=== PATIENT | female | born 1950 | race Caucasian/White ===

== ENCOUNTER 2024-09-12 06:29 | Day surgery (SDC) | payer MEDICARE, BC, SELFPAY ==
[2024-09-07 11:27] VITALS: BMI 31.4
[2024-09-12 07:10] VITALS: BP 160/94; PULSE 82; RESP 16; TEMP 37.3; O2SAT 98; BMI 31.2
[2024-09-12] MEDS: Tetracaine HCl/PF 0.5% Oph Sol 4 ML DROPS 1 DROP EYE-LEFT (07:14)
[2024-09-12 07:16] LABS: Glucose, Whole Blood 176 mg/dL (60-115)
[2024-09-12] MEDS: Cyclopentolate 1 % Ophth Sol 2 ML DRPBTL 1 DROP EYE-LEFT ×3 (07:16→07:35)
[2024-09-12] MEDS: Tropicamide 1 % Ophth Sol 3 ML BTL 1 DROP EYE-LEFT ×3 (07:18→07:37)
[2024-09-12] MEDS: Ketorolac Tromethamine 0.5% Op 5 ML DROPS 1 DROP EYE-LEFT ×3 (07:19→07:39)
[2024-09-12] MEDS: Phenylephrine HCL 2.5% Oph SoL 2 ML BOTTLE 1 DROP EYE-LEFT ×3 (07:21→07:44)
--- NOTE | 2024-09-12 07:36 | P.CONAN_ITS ---
HPI - Anesthesia Eval Consult details Narrative: for cataract extraction [facility] Past Medical History Medical History Cataracts, bilateral Nephrolithiasis Hx of urinary tract infection HTN (hypertension) Dyslipidemia Diabetic neuropathy Diabetes Family History Family history of problems with anesthesia: No Surgical History Surgical History Hx of colonoscopy Hx of lithotripsy History of total left knee replacement (TKR) History of Problems with Anesthesia: No Social History Social History Patient Tobacco Use Status: Never used Tobacco Use of substances other than those prescribed or required for medical reasons: No Are you DNR?: Yes Advance Directives: No Advance Directives Information Provided: Yes Meds Allergies Allergy/AdvReac Type Severity Reaction Status Date / Time amlodipine Allergy perineal Verified 09/12/24 07:09 irritation empagliflozin Allergy Swelling Verified 09/12/24 07:09 [From Jardiance] Active Medications: Current Medications Lactated Ringer's (Lr) 500 mls @ 100 mls/hr IVCONT .Q5H ROMAN Povidone Iodine (Povidone Iodine 5 % Ophth Soln 30 Ml Bottle) 1 appl EYE-LEFT PREOP PRN PRN Reason: Pre-Op Surgical Implant Prophy Home Medications ?Medication ?Instructions ?Recorded ?Confirmed ?Last Taken ?Type [place] 3 09/07/24 09/07/24 Unknown History PreserVision AREDS 09/07/24 Unknown History cholecalciferol (vitamin D3) 50 50 mcg PO DAILY 09/07/24 09/12/24 Unknown History mcg (2,000 unit) capsule (Vitamin D3) cyanocobalamin (vitamin B-12) 3,000 mcg sublingual DAILY 09/07/24 09/12/24 Unknown History 1,000 mcg sublingual tablet insulin glargine 100 unit/mL (3 27 unit subcut DAILY 09/07/24 09/12/24 Unknown History mL) subcutaneous pen (Basaglar KwikPen U-100 Insulin) valsartan 160 mg tablet 160 mg PO DAILY 09/07/24 09/12/24 Unknown History Exam Height,Weight and Vital Signs: Height 5 ft 8.11 in Weight 93.44 kg Last Vital Signs Temp 99.2 F 09/12/24 07:10 Pulse 82 09/12/24 07:10 Resp 16 09/12/24 07:10 BP 160/94 H 09/12/24 07:10 Pulse Ox 98 09/12/24 07:10 O2 Del Method Room Air 09/12/24 07:10 Pertinent Lab Results Pertinent Lab Results: Laboratory Tests 09/12/24 07:05 POC Glucose 176 H Airway Mallampati Class: II TM Dist: >3cm Neck ROM: Full Heart: rrr Lungs: cta Assessment and Plan Assessment Anesthesia Assessment: Anesthesia Plan Discussed and Chart Reviewed Final Anesthetic Review Family History of Problems with Anesthesia: No History of Problems with Anesthesia: No NPO: Yes ASA Class: III Final Preanesthetic Review: No Changes in Pt Med Stat, Meds/Allgs Chart Reviewed, Consent Obtained/Reviewed and Anes Risks/Benef Reviewed Patient Risk: Intermediate Procedure Risk: Low Anesthetic Plan Disposition: Standard PACU
--- NOTE | 2024-09-12 07:57 | MHC.SHP ---
Pre-Procedural Eval Section A - 24 Hr Update-Section A only Date of Service: 09/12/24 The patient is an INPATIENT: No Changes since office visit: No Cold of Flu in the past 2 weeks, No New Medical Problems, No Changes in Medication and No Patient answered all questions The patient has been examined within 24 hours of the surgical procedure. The History & Physical has been completed within 30 days and I have reviewed it.: Yes Section B - Complete if H&P > 30 days Chief Complaint: Age-related nuclear cataract, left eye Allergies: Allergies Allergy/AdvReac Type Severity Reaction Status Date / Time amlodipine Allergy perineal Verified 09/12/24 07:09 irritation empagliflozin Allergy Swelling Verified 09/12/24 07:09 [From Jardiance] Plan Diagnosis/Plan: Unchanged I have reviewed the history and physical and performed a pertinent physical examination on my patient. No changes have occurred unless specified. Time Spent With Patient Time: Total time managing care of this patient today ____ minutes.
--- NOTE | 2024-09-12 07:57 | HO.PNOPHT ---
Ophthalmology Procedure Procedure Date of Service: 09/12/24 Ophthalmology Viscoelastic: Healon Duet Dual Pack Pro Ophthalmology Lenses: IOL Acrysof MP - [id number] (22.5) Procedure Notes: PREOPERATIVE DIAGNOSIS: Decreased visual acuity left eye secondary to cataract POSTOPERATIVE DIAGNOSIS: Same PROCEDURE: Left cataract extraction with intraocular lens insertion SURGEON: Mickey Singh M.D. ANESTHESIA: Topical/MAC ESTIMATED BLOOD LOSS: None COMPLICATIONS: None After obtaining informed consent, the patient was brought to the operation room suite and placed in the supine position. After adequate sedation per anesthesia, topical drops of Tetracaine were given to the left eye. The eye was then prepped and draped in the usual sterile fashion. The operating room microscope was then positioned over the operative eye and a lid speculum placed. A paracentesis was created. Viscoelastic was then instilled into the anterior chamber. A three plane incision was then created temporally, utilizing a 2.85 mm keratome. Capsulotomy forceps were then utilized to create a circular tear capsulotomy. Hydrodissection and hydrodelineation were carried out until adequate mobilization of the nucleus occurred. Phacoemulsification was then utilized to remove the dense central nucleus followed by removal of the cortical material utilizing the automated aspiration irrigation unit. Viscoat elastic was instilled into the posterior capsular bag followed by placement of a posterior chamber intraocular lens without difficulty. The residual Viscoat elastic was then removed utilizing the automated IA machine. The wound was check and found to be watertight. The patient tolerated the procedure well and the lid speculum was removed. Intracameral injection of Vigamox 0.1 mL followed by a subtenon injection of Kenalog-40 0.2 mL were administered. The patient will be seen in the a.m.
[2024-09-12 08:19] VITALS: BP 144/68; PULSE 75; RESP 16; TEMP 36.4; O2SAT 98
== END 2024-09-12 08:30 | disposition home or self-care (01) ==
PROVIDERS: PCP Internal Medicine; Visit Provider Ophthalmology
PROC: (CPT 66985; principal; 2024-09-12 08:00)
DX: H25.12 Age-related nuclear cataract, left eye (principal); H54.7 Unspecified visual loss; I10 Essential (primary) hypertension; H52.223 Regular astigmatism, bilateral; H18.413 Arcus senilis, bilateral; E78.00 Pure hypercholesterolemia, unspecified; E78.5 Hyperlipidemia, unspecified; E11.40 Type 2 diabetes mellitus with diabetic neuropathy, unspecified; Z79.899 Other long term (current) drug therapy; Z88.8 Allergy status to other drugs, medicaments and biological substances; Z87.442 Personal history of urinary calculi; Z96.652 Presence of left artificial knee joint; Z87.891 Personal history of nicotine dependence
CPT/HCPCS: 66984; 82947; J2250; J3301; V2630

== ENCOUNTER 2024-09-26 07:38 | Day surgery (SDC) | payer MEDICARE, BC, SELFPAY ==
[2024-09-07 11:35] VITALS: BMI 31.4
--- OUTSIDE RECORDS SUMMARY | 2024-09-14 17:46 | XMS_ITS | Clinical Summary ---
Author Organization [facility] Address [address] [address] Phone Care Team Providers Care Educational Programming Director Name Role Phone Mayco Berg MD Primary Care Provider [phone] Allergies Active Allergy Reactions Criticality Noted Date Comments Amlodipine Other (see comments) 12/17/2022 Empagliflozin Other (see comments) 12/17/2022 Medications Basaglar KwikPen 100 UNIT/ML injection Inject 27 Units under the skin 1 (one) time each day in the evening 3 Active Multiple Vitamins-Minera ls (PRESERVISION AREDS PO) 0 Refills, Maintenance, 11/07/22 16:40:00 EDT, Partial fill upon patient request if the prescription is for a schedule II opioid drug. 3 Active valsartan (DIOVAN) 160 MG tablet Take 1 tablet (160 mg total) by mouth 1 (one) time each day 90 tablet 3 4 06/20/20 25 Active valsartan (Diovan) 80 MG tablet Take 1 tablet (80 mg total) by mouth 1 (one) time each day To be taken along with you 160 mg tablet for a total daily dose of 240 mg per day 90 tablet 3 4 06/20/20 25 Active Active Problems Problem Noted Date Diagnosed Date Localized edema 04/22/2021 Hypertensive nephrosclerosis 10/23/2020 Proteinuria, not otherwise specified 10/23/2020 Cyst of kidney 10/23/2020 Dyslipidemia 10/23/2020 Stage 3b chronic kidney disease 10/19/2020 Hypertension 10/19/2020 Hypertensive heart disease without heart failure 10/19/2020 Renal disorder due to type 2 diabetes mellitus 0 10/19/2020 Resolved Problems Problem Noted Date Diagnosed Date Resolved Date At increased risk for cardiovascular event 04/22/2021 06/15/2023 Encounters Date Type Department Care Team Description 06/20/2024 10:00 AM EST Office Visit [facility] [address] [facility] [address] [place] [id number] Ernst Aviles MD Stage 3b chronic kidney disease (HCC) (Primary Dx); Proteinuria, not otherwise specified; Renal disorder due to type 2 diabetes mellitus <Other diabetic kidney complication> (HCC); Hypertensive nephrosclerosis; Hypertensive heart disease without heart failure, not otherwise specified; Hypertension; Dyslipidemia 06/17/2024 Orders Only [facility] [address] [place] [id number] Ernst Aviles MD Stage 3b chronic kidney disease (HCC); Proteinuria, not otherwise specified; Localized edema; Hypertensive nephrosclerosis; Hypertensive heart disease without heart failure, not otherwise specified; Hypertension; Dyslipidemia from Last 3 Months Immunizations Name Administration Dates Next Due Influenza Split High Dose Pr eservative Free IM 04/19/2019,05/03/2018,10/07/2017 Family History Medical History Relation Comments Dementia Father 87 Diabetes Sibling brother Relation Status Comments Father Mother Alive Sibling Social History Tobacco Use Types Packs/Day Years Used Date Smoking Tobacco: Former Smokeless Tobacco: Never Alcohol Use Standard Drinks/Week Comments Yes 0 (1 standard drink = 0.6 oz pure alcohol) Alcoholic Drinks/day: Occasional social drink Comments Unknown Sex and Gender Information Value Date Recorded Sex Assigned at Not on file Legal Sex Female 4:48 PM EST Gender Identity Not on file Sexual Orientation Not on file Last Filed Vital Signs Vital Sign Reading Time Taken Comments Blood Pressure 185/106 06/20/2024 10:17 AM EST Pulse 90 06/20/2024 10:17 AM EST Temperature - - Respiratory Rate - - Oxygen Saturation 97% 06/20/2024 10:17 AM EST Inhaled Oxygen Concentration - - Weight 93.2 kg (205 lb 6.4 oz) 06/20/2024 10:17 AM EST Height 172.7 cm (5' 8 ) 06/20/2024 10:17 AM EST Body Mass Index 31.23 06/20/2024 10:17 AM EST Plan of Treatment Upcoming Encounters Date Type Department Care Team (Late st Contact Info) Description 12/21/2024 10:20 AM EDT Office Visit [facility] [address] [address] Ernst Aviles MD [address] [address] Health Maintenance Due Date Last Done Comments Breast Cancer Screening 1950 Colorectal Cancer Screening: Annual FOBT 12/12/1999 Colorectal Cancer Screening: Colonoscopy 12/12/1999 Colorectal Cancer Screening: Sigmoidoscopy 12/12/1999 Pneumococcal Vaccine: 65+ Years (2 of 2 - PPSV23 or PCV20) 01/04/2019 11/09/2018 Diabetes: Ophthalmology Exam 08/20/2020 Diabetes: Pedal Pulse Checked 08/20/2020 Diabetes: Sensory Foot Exam 08/20/2020 Diabetes: Visual Foot Exam 08/20/2020 Influenza Vaccine (#1) 2024 0, 04/19/2019, 05/03/2018, Additional history exists Diabetes: Hemoglobin A1C 09/13/2024 024, 12/09/2022, 04/17/2021, Additional history exists Hepatitis B Vaccine Aged Out 08/01/1994, 03/04/1994, 01/29/1994 No longer eligible based on patient's age to complete this topic Procedures Procedure Name Priority Date/Time Associated Diagnosis Comments HEMOGLOBIN A1C Routine 06/13/2024 9:31 AM EST from Last 3 Months or Most Recently Relevant to Health Maintenance Results * (ABNORMAL) Hemoglobin A1c (06/13/2024 9:31 AM EST) Hemoglobin A1C 7.0(H) 4.8 - 5.6 % [facility] Comment: ? Prediabetes: 5.7 - 6.4 ? Diabetes: >6.4 ? Glycemic control for adults with diabetes: <7.0 06/13/2024 9:31 AM EST 06/13/2024 us Ernst Aviles MD LAB BLOOD ORDERABLES Final Re sult [facility] [address] [place] [address] from Last 3 Months or Most Recently Relevant to Health Maintenance Insurance MEDICARE [facility] MEDICARE [facility] Care Teams Educational Programming Director Relationship Specialty Start Date End Date Mayco Berg MD [facility] [place], [place] PCP - General 07/30/20
--- OUTSIDE RECORDS SUMMARY | 2024-09-14 17:46 | XMS_ITS | Continuity of Care Document ---
Author Organization [facility] Address [address] [place] [address]- Care Team Providers Care Insurance Coordinator Name Role Phone Morena MILLER, Mayco Taylor Primary Care Physician [phone] [place] [facility] 08/31/24 [facility] [address] [place] [address]- Encounter Type: Triage Allergies, Adverse Reactions, Alerts Substance Criticality Severity Reaction Reaction Severity Status AmLODIPine Besylate Foot swelling Active Jardiance Perineal irritation Active Immunizations Given and Recorded Vaccine Date Status Refusal Reason influenza virus vaccine, inactivated 1 04/29/23 Gi waqar influenza virus vaccine, inactivated 06/10/22 Give n influenza virus vaccine, inactivated 07/03/19 Hector rded influenza virus vaccine, inactivated 04/19/19 Hector rded influenza virus vaccine, inactivated 06/06/18 Hector rded influenza virus vaccine, inactivated 04/19/18 Hector rded influenza virus vaccine, inactivated 2 10/18/16 Re corded zoster vaccine, inactivated 06/30/21 Recorded zoster vaccine, inactivated 02/15/21 Recorded SARS-CoV-2 (COVID-19) mRNA BNT-162b2 vac 05/17/21 Recorded SARS-CoV-2 (COVID-19) mRNA BNT-162b2 vac 11/03/20 Recorded SARS-CoV-2 (COVID-19) mRNA BNT-162b2 vac 10/11/20 Recorded Influenza Virus Vaccine (oldterm) 06/12/20 Recorde d pneumococcal 13-valent vaccine 11/09/18 Given Hepatitis A Adult Vaccine 3 05/13/18 Given Hepatitis A Adult Vaccine 4 10/28/17 Given Typhoid Vaccine, Inactivated 10/28/17 Given tetanus/diphtheria/pertussis, acel(Tdap) 10/28/17 Given hepatitis B adult vaccine 08/01/94 Recorded hepatitis B adult vaccine 03/04/94 Recorded hepatitis B adult vaccine 01/29/94 Recorded 1Result Comment: [facility]: [id number] 2Location History: [facility] 3Result Comment: [05/13/2018] Hepatitis A #2 4Result Comment: [10/28/2017] hep A #1 Medications Alcohol Pads See Instructions, # 1 each, Maintenance, use as directed, 11/12/22 12:02:00 PM EDT, Supply, 173, cm,11/12/22 8:39:00 EDT, Height, 83.2, kg, 11/09/22 6:54:00 EDT, Dry Weight Start Date: 11/12/22 Status: Ordered Quantity: 1.0 Unit: each Repeat number: 1 aspirin 81 mg oral delayed release tablet 1 tablet = 81 mg, By Mouth, Daily, 0 Refills, Maintenance, 03/05/21 10:04:00 AM EDT, Partial fill upon patient request if the prescription is for a schedule II opioid drug. Start Date: 03/05/21 Status: Ordered Repeat number: 1 Basaglar KwikPen 100 units/mL subcutaneous solution = 27 units, Subcutaneous Infusion, Daily, dx: type II diabetes, # 15 mL, 4 Refills, Maintenance, 08/01/24 11:38:00 AM [id number], Partial fill upon patient request if the prescription is for a schedule II opioid drug., 173, cm, 05/17/24 9:45:00 EDT, Height, 89.4, kg, 01/14/24 13:58:00 EDT, Dry Weight Start Date: 08/01/24 Stop Date: 12/29/24 Status: Ordered Quantity: 15.0 Unit: mL Repeat number: 5 Basaglar Tempo Pen 100 units/mL subcutaneous solution See Instructions, Inject 27 units SQ daily. Patient continues to use this basal insulin., # 15 mL, 5 Refills, Maintenance, 03/31/24 3:44:00 PM EDT, [facility] #[id number], Partial fill upon patient request if the prescription is for a schedule II opioid drug., 173, cm, 01/14/24 13:58:00 EDT, Height, 89.4, kg, 01/14/24 13:58:00 EDT, Dry Weight Start Date: 03/31/24 Status: Ordered Quantity: 15.0 Unit: mL Repeat number: 6 Contour Next EZ Glucometer See Instructions, # 1 each, Maintenance, use as directed for Type 2 Diabetes Mellitus, 11/12/22 12:00:00 PM EDT, Supply, 173, cm, 11/12/22 8:39:00 EDT, Height, 83.2, kg, 11/09/22 6:54:00 EDT, Dry Weight Start Date: 11/12/22 Status: Ordered Quantity: 1.0 Unit: each Repeat number: 1 Contour Next EZ Test Strips See Instructions, # 1 each, Maintenance, use as directed for Type 2 Diabetes Mellitus, 11/12/22 12:00:00 PM EDT, Supply, 173, cm, 11/12/22 8:39:00 EDT, Height, 83.2, kg, 11/09/22 6:54:00 EDT, Dry Weight Start Date: 11/12/22 Status: Ordered Quantity: 1.0 Unit: each Repeat number: 1 Freestyle Lancets See Instructions, # 100 each, Maintenance, use as directed, 11/12/22 12:01:00 PM EDT, Supply, 173, cm, 11/12/22 8:39:00 EDT, Height, 83.2, kg, 11/09/22 6:54:00 EDT, Dry Weight Start Date: 11/12/22 Status: Ordered Quantity: 100.0 Unit: each Repeat number: 1 Freestyle Jam 14 Day Sensors 2 boxes/month change every 14 days. Freestyle Jam 14 Day Sensors 2 boxes/month change every 14 days., See Instructions, # 2 each, Refills 11, Tot. Refills 11, Maintenance, 2 boxes monthly IDDM E11.9, 11/13/22 9:29:00 AM EDT, Compound Start Date: 11/13/22 Status: Ordered Quantity: 2.0 Unit: each Repeat number: 12 Freestyle Jam 14-day [place] Freestyle Jam 14-day [place], See Instructions, # 1 each, Refills 0, Tot. Refills 0, Maintenance, Use to scan for blood sugar at least 4 times daily. E11.65. If prior authoriazation is needed, please sent to primary care provider Mayco Mendieta MD, 11/12/22 11:59:00 AM EDT, Compound, 173, cm, 11/12/22 8:39:00 EDT, Height, 83.2, kg, 11/09/22 6:54:00 EDT, Dry Weight Start Date: 11/12/22 Status: Ordered Quantity: 1.0 Unit: each Repeat number: 1 Freestyle Jam 14-day Sensors Freestyle Jam 14-day Sensors, See Instructions, # 2 each, Refills 11, Tot. Refills 11, Maintenance, Use to scan for blood sugar at least 4 times daily. E11.65. If prior authoriazation is needed, please sent to primary care provider Mayco Mendieta MD, 11/12/22 11:58:00 AM EDT, Compound, 173, cm, 11/12/22 8:39:00 EDT, Height, 83.2, kg, 11/09/22 6:54:00 EDT, Dry Weight Start Date: 11/12/22 Status: Ordered Quantity: 2.0 Unit: each Repeat number: 12 FreeStyle Jam 2 Monitor See Instructions, # 1 each, Maintenance, Use to test BS 4x/day per PCP E11.9 IDDM, 11/13/22 9:29:00 AM EDT, Supply Start Date: 11/13/22 Status: Ordered Quantity: 1.0 Unit: each Repeat number: 1 Multivitamin 1 tablet, By Mouth, Daily, 0 Refills, Maintenance, 10/28/17 1:15:16 PM EDT Start Date: 10/28/17 Status: Ordered Repeat number: 1 NovoLOG FlexPen 100 units/mL subcutaneous solution See Instructions, 145 - 169 3 units 170 - 194 4 units 195 - 219 5 units 220 - 244 6 units 245 - 2697 units 270 - 294 8 units, # 10 mL, 0 Refills, Maintenance, 11/12/22 12:06:00 PM EDT, Solution, [facility] #[id number], Partial fill upon patient request if the prescription is for a schedule II opioid drug., 173, cm, 11/12/22 8:39:00 EDT, Height, 83.2, kg, 11/09/22 6:54:00 EDT, Dry Weight Start Date: 11/12/22 Status: Ordered Quantity: 10.0 Unit: mL Repeat number: 1 [place]-3 Polyunsaturated Fatty Acids 1 tablet, By Mouth, 0 Refills, Maintenance, 03/02/18 11:23:38 AM EDT Start Date: 03/02/18 Status: Ordered Repeat number: 1 Pen Treece, 31 G x 5 mm BD Ultra Fine III See Instructions, # 100 each, Refills 5, Tot. Refills 5, Maintenance, use as directed for Type 2 Diabetes Mellitus, 02/04/24 4:21:00 PM EDT, Supply, 173, cm, 01/14/24 13:58:00 EDT, Height, 89.4, kg, 01/14/24 13:58:00 EDT, Dry Weight Start Date: 02/04/24 Stop Date: 08/02/24 Status: Ordered Quantity: 100.0 Unit: each Repeat number: 6 Pen Treece, 31 G x 5 mm BD Ultra Fine III See Instructions, # 100 each, Refills 0, Tot. Refills 0, Maintenance, use as directed for Type 2 Diabetes Mellitus, 11/12/22 11:59:00 AM EDT, Supply, 173, cm, 11/12/22 8:39:00 EDT, Height, 83.2, kg, 11/09/22 6:54:00 EDT, Dry Weight Start Date: 11/12/22 Stop Date: 12/12/22 Status: Ordered Quantity: 100.0 Unit: each Repeat number: 1 PreserVision 0 Refills, Maintenance, 11/07/22 4:40:00 PM EDT, Partial fill upon patient request if the prescription is for a schedule II opioid drug. Start Date: 11/07/22 Status: Ordered Repeat number: 1 valsartan 160 mg oral tablet 160 mg, 1, tablet, By Mouth, Daily, # 90 tablet, Refills 3, Tot. Refills 3, Maintenance, 08/06/23 11:18:00 AM EST, Route to Pharmacy Electronically, [facility] #[id number], Partial fill upon patient request if the prescription is for a schedule II opioid drug., 173, cm, 08/06/23 11:16:00 EST, Height, 85.1, kg, 03/02/23 13:08:00 EDT, Dry Weight Start Date: 08/06/23 Status: Ordered Quantity: 90.0 Unit: tablet Repeat number: 4 Vitamin B12 = 3,000 mcg, By Mouth, 0 Refills, Maintenance, 04/29/23 11:41:00 AM EDT, Partial fill upon patient request if the prescription is for a schedule II opioid drug. Start Date: 04/29/23 Status: Ordered Repeat number: 1 Vitamin D3 1000 intl units oral capsule 2 capsule = 2,000 International_Units, By Mouth, Daily, # 60 capsule, 0 Refills, Maintenance, 08/04/17 11:47:18 AM EST, Capsule Start Date: 08/04/17 Status: Ordered Quantity: 60.0 Unit: capsule Repeat number: 1 Problem List Condition Confirmation Course Effective Dates Status H ealth Status Informant Hypertension Confirmed Active Diabetic nephropathy Confirmed Active Dyslipidemia Confirmed Active Nephrolithiasis Confirmed Active Obese class I Confirmed Active UTI (urinary tract infection) Confirmed Active Social History Social History Type Response Smoking Status Former smoker; Tobac co user in household: No; Other: quit 40 years ago; entered on: 06/02/17 Sex Sex Representation Female (finding) Implantable Device List Procedure Provider Procedure Date Device Type Site Cystoscopy Retrograde Ureter al Stent Jan Everett MD 03/02/23 Unknown Ureter Device Identifier Serial Number Lot or Batch Number Manufacturing Date Expiration Date Distinct Identification Code MRI Safety Implantable Status Assigning Authority Unknown Unknown [id number] Unknown 08/26/25 Unknown Unknown Active Unknown Patient Care team information Care Team Personnel Name: Ernst Bah MD Position: [facility] Renal MD Member Role: Lifetime Consulting Physician Address: [address] [facility] [address] Telecom: Name: Joni Quiñonez MD Position: [facility] Outreach Member Role: Lifetime Consulting Physician Address: [address] [facility] [address] Telecom: Name: Rylie Albert RN Position: [facility] RN Member Role: Primary Care Nurse Name: Morena MILLER, Mayco Taylor Position: [facility] Physician - Primary Care Member Role: PCP Address: [address] [place] [address]- Telecom: Care Team Related Persons Name: CARLEE LÓPEZ MD Name: JV YUO Insurance Providers Guarantor name: [id number] YOU Health Plan Information #: 1 Payer: MEDICARE PART B OUTPT Member Number: NA Policy Number: NA Group Number: NA Health Plan Information #: 2 Payer: [employer]ARE SUP[employer] Member Number: NA Policy Number: NA Group Number: NA
--- OUTSIDE RECORDS SUMMARY | 2024-09-14 17:46 | XMS_ITS | Continuity of Care Document ---
Author Organization [facility] Address [address] [place] [address]- Care Team Providers Care Brace End Mainspring Former Name Role Phone Morena MILLER, Mayco Taylor Primary Care Physician Encounter [facility] [place] Date(s): 09/01/24 - 09/08/24 [facility] [address] [place], [place] [address] Attending Physician: Rocco Santana MD Referring Physician: Samantha MILLER, Mickey Dunbar Encounter Type: Office Visit Allergies, Adverse Reactions, Alerts Substance Criticality Severity [...] B adult vaccine 01/29/94 Recorded 1Result Comment: [facility] [place]: [id number] 2Location History: [facility] 3Result Comment: [05/13/2018] Hepatitis A #2 4Result Comment: [10/28/2017] hep A #1 Medications Basaglroberto EncarnacionPen 100 units/mL subcutaneous solution = 27 units, Subcutaneous Infusion, Daily, dx: type II diabetes, # 15 mL, 4 Refills, Maintenance, 08/01/24 11:38:00 AM EST, [id number], Partial fill upon patient request if the prescription is for a schedule II opioid drug., 173, cm, 05/17/24 9:45:00 EDT, Height, 89.4, kg, 01/14/24 13:58:00 EDT, Dry Weight Start Date: 08/01/24 Stop Date: 12/29/24 Status: Ordered Quantity: 15.0 Unit: mL Repeat number: 5 [place]-3 Polyunsaturated Fatty Acids 1 tablet, By Mouth, 0 Refills, Maintenance, 03/02/18 11:23:38 AM EDT Start Date: 03/02/18 Status: Ordered Repeat number: 1 PreserVision 0 Refills, Maintenance, 11/07/22 4:40:00 PM EDT, Partial fill upon patient request if the prescription is for a schedule II opioid drug. Start Date: 11/07/22 Status: Ordered Repeat number: 1 valsartan 160 mg oral tablet 160 mg, 1, tablet, By Mouth, Daily, # 90 tablet, Refills 3, Tot. Refills 3, Maintenance, 08/06/23 11:18:00 AM EST, Route to Pharmacy Electronically, [facility][id number], Partial fill upon patient request if the [...] Active UTI (urinary tract infection) Confirmed Active Procedures Procedure Date Related Diagnosis Body Site Status Left total knee replacement; lithotripsy x 2; colonoscopies Completed Vital Signs Most recent to oldest [Reference Range]: 1 Height 173 cm (09/01/24 11:38 AM) Weight 93.9 kg (09/01/24 11:38 AM) Oxygen Saturation [94-100 %] 97 % (09/01/24 11:38 AM) Pulse Rate [55-90 bpm] 73 bpm (09/01/24 11:38 AM) Body Mass Index [18.5-24.99 kg/m2] 31.37 kg/m2 *>HHI* (09/01/24 11:38 AM) Blood Pressure [90-138/55-84 mm Hg] 192/ 93mm Hg *H* (09/01/24 11:38 AM) Respiratory Rate [16-30 br/min] 16 br/mi n (09/01/24 11:38 AM) Blood pressure sites Arm, right (09/01/24 11:38 AM) Weight Obtained Via Standing scale (09/01/24 11:38 AM) Social History Social History Type Response Smoking [...] Safety Implantable Status Assigning Authority Unknown Unknown [id number] Unknown 08/26/25 Unknown Unknown Active Unknown Patient Care team information Care Team Personnel Name: Ernst Bah MD Position: [facility] Renal MD Member Role: Lifetime Consulting Physician Address: [address] [facility] [facility] [place] [address]- Telecom: Name: Olamide MILLER, Joni Position: [facility] Outreach Member Role: Lifetime Consulting Physician Address: [address] [facility] [address] [facility] [place], [place] [address] Telecom: Name: Rylie Albert RN Position: [facility] RN Member Role: Primary Care Nurse Name: Mayco Berg MD Position: [facility] Physician - Primary Care Member Role: PCP Address: [address] [place] [address]- Telecom: Care Team Related Persons Name: CARLEE LÓPEZ MD Name: JV YOU Insurance Providers Guarantor name: DEVAUGHN YOU Health Plan Information #: 2 Payer: BLUE MEDICARE SUPPL Member Number: [id number] Policy Number: NA Group Number: [id number] Health Plan Information #: 1 Payer: MEDICARE PART B OUTPT Member Number: [id number] Policy Number: NA Group Number: NA
--- OUTSIDE RECORDS SUMMARY | 2024-09-14 17:46 | XMS_ITS | Continuity of Care Document ---
Author Organization [facility] Address [address] [place] [address]- Care Team Providers Care Global Climate Change Analyst Name Role Phone Mayco Berg MD Primary Care Physician Encounter 08/17/24 - 08/24/24 [facility] [address] [facility] [address], [address] [place] [address]- Attending Physician: Suhas Olson MD Admitting Physician: Suhas Olson MD Referring Physician: Suhas Olson MD Encounter Type: OutPatient One Time Allergies, Adverse Reactions, Alerts Substance Criticality Severity [...] B adult vaccine 01/29/94 Recorded 1Result Comment: [facility]: [id number] 2Location History: [facility] 3Result Comment: [05/13/2018] [...] mL, 4 Refills, Maintenance, 08/01/24 11:38:00 AM [facility], [facility] #[id number], Partial fill upon patient request if the [...] 5 Refills, Maintenance, 03/31/24 3:44:00 PM EDT, [facility] #[id number], Partial fill upon patient request if the [...] each Repeat number: 12 Freestyle Jam 14-day [place] Freestyle Jam 14-day [place], See Instructions, # 1 each, Refills 0, [...] Refills, Maintenance, 11/12/22 12:06:00 PM EDT, [id number], Partial fill upon patient request if the prescription is for a schedule II opioid drug., 173, cm, 11/12/22 8:39:00 EDT, Height, 83.2, kg, 11/09/22 6:54:00 EDT, Dry Weight Start Date: 11/12/22 Status: Ordered Quantity: 10.0 Unit: mL Repeat number: 1 [place]-3 Polyunsaturated Fatty Acids 1 tablet, By Mouth, 0 Refills, Maintenance, 03/02/18 11:23:38 AM EDT Start Date: 03/02/18 Status: Ordered Repeat number: 1 Pen [place], 31 G x 5 mm BD Ultra Fine III See Instructions, # 100 each, Refills 5, Tot. Refills 5, Maintenance, use as directed for Type 2 Diabetes Mellitus, 02/04/24 4:21:00 PM EDT, Supply, 173, cm, 01/14/24 13:58:00 EDT, Height, 89.4, kg, 01/14/24 13:58:00 EDT, Dry Weight Start Date: 02/04/24 Stop Date: 08/02/24 Status: Ordered Quantity: 100.0 Unit: each Repeat number: 6 Pen [place], 31 G x 5 mm BD Ultra [...] 11:18:00 AM EST, Route to Pharmacy Electronically, [facility] #[id number], Partial fill upon patient request if the [...] Active UTI (urinary tract infection) Confirmed Active Results Radiology Reports * Exam Date Time Procedure Performing Provider Status 08/17/24 2:18 PM US Renal Bladder Art Reilly; Au th (Verified) Notes: (US Renal Bladder) Reason For Exam: Calculus of kidney RESULT: US Renal Bladder [facility] [address] [place] [address]. Reason: Calculus of kidney. COMPARISON: 07/23/2023; CT Abdomen and Pelvis 06/02/2023. FINDINGS: Right kidney: 11.3 cm in length. No hydronephrosis. Normal parenchymal thickness and echotexture. No stones. No suspicious mass. Left kidney: 10.0 cm in length. No hydronephrosis. Normal parenchymal thickness and echotexture. Nostones. No suspicious mass. Simple cyst measuring 1.1 x 0.8 x 1.0 cm in the upper pole, similar or slightly decreased from prior. Urinary bladder: Incompletely distended, but no evidence of stone, mass or debris. Prevoid urinary bladder volume approximately 136 cc. Postvoid urinary bladder not assessed. IMPRESSION: No sonographic evidence of nephrolithiasis or hydronephrosis. Stable or slightly decreased 1.1 cm left renal cyst. WSN: [id number] Ordering Physician: Suhas Olson Dictated By: Jeyson Lawson MD Dictated Date/Time: 08/17/24 3:49 pm Reviewed By: Jeyson Lawson MD Signed By: Jeyson Lawson MD Signed Date/Time: 08/17/24 3:49 pm Transcribed By: CSB Transcribed Date/Time: 08/17/24 3:47 pm Social History Social History Type Response Smoking [...] Safety Implantable Status Assigning Authority Unknown Unknown [id number] Unknown 08/26/25 Unknown Unknown Active Unknown Patient Care team information Care Team Personnel Name: Ernst Bah MD Position: [facility] Renal MD Member Role: Lifetime Consulting Physician Address: [address] [facility] [address] [facility] [place] [address]- Telecom: Name: Joni Quiñonez MD Position: [facility] Outreach Member Role: Lifetime Consulting Physician Address: [address] [facility] [place], [place] [address] Telecom: Name: Rylie Albert RN Position: [facility] RN Member Role: Primary Care Nurse Name: Mayco Berg MD Position: [facility] Physician - Primary Care Member Role: PCP Address: [address] [place] [address]- Telecom: Care Team Related Persons Name: CARLEE LÓPEZ MD Name: JV YOU Insurance Providers Guarantor name: DEVAUGHN YOU Health Plan Information #: 1 Payer: MEDICARE PART B OUTPT Member Number: [id number] Policy Number: NA Group Number: NA Health Plan Information #: 2 Payer: [employer]IL MEDICARE SUPPL Member Number: [id number] Policy Number: NA Group Number: [id number]
--- OUTSIDE RECORDS SUMMARY | 2024-09-14 17:46 | XMS_ITS | Continuity of Care Document ---
Author Organization [facility] Address [address] [place] [address]- Care Team Providers Care Auto Overhauler Name Role Phone Morena MILLER, Mayco Taylor Primary Care Physician [place] [facility] [place] 08/01/24 - 08/31/24 [facility] Adult [address] [place] [address]- Encounter Type: Triage Allergies, Adverse Reactions, Alerts [...] Recorded 1Result Comment: [facility]: [id number] 2Location History: [facility] 3Result Comment: [05/13/2018] [...] mL, 4 Refills, Maintenance, 08/01/24 11:38:00 AM [facility], [facility] #[id number], Partial fill upon patient request if the [...] 5 Refills, Maintenance, 03/31/24 3:44:00 PM EDT, [facility] #[id number], Partial fill upon patient request if the [...] each Repeat number: 12 Freestyle Jam 14-day [place] Freestyle Jam 14-day [place], See Instructions, # 1 each, Refills 0, [...] Refills, Maintenance, 11/12/22 12:06:00 PM EDT, Solution, [facility] #[id number], Partial fill upon patient request if the prescription is for a schedule II opioid drug., 173, cm, 11/12/22 8:39:00 EDT, Height, 83.2, kg, 11/09/22 6:54:00 EDT, Dry Weight Start Date: 11/12/22 Status: Ordered Quantity: 10.0 Unit: mL Repeat number: 1 [place]-3 Polyunsaturated Fatty Acids 1 tablet, By Mouth, 0 Refills, Maintenance, 03/02/18 11:23:38 AM EDT Start Date: 03/02/18 Status: Ordered Repeat number: 1 Pen [place], 31 G x 5 mm BD Ultra Fine III See Instructions, # 100 each, Refills 5, Tot. Refills 5, Maintenance, use as directed for Type 2 Diabetes Mellitus, 02/04/24 4:21:00 PM EDT, Supply, 173, cm, 01/14/24 13:58:00 EDT, Height, 89.4, kg, 01/14/24 13:58:00 EDT, Dry Weight Start Date: 02/04/24 Stop Date: 08/02/24 Status: Ordered Quantity: 100.0 Unit: each Repeat number: 6 Pen [place], 31 G x 5 mm BD Ultra [...] 11:18:00 AM EST, Route to Pharmacy Electronically, [facility] #[id number], Partial fill upon patient request if the [...] Safety Implantable Status Assigning Authority Unknown Unknown [id number] Unknown 08/26/25 Unknown Unknown Active Unknown Patient Care team information Care Team Personnel Name: Ernst Bah MD Position: [facility] Renal MD Member Role: Lifetime Consulting Physician Address: [address] [facility] [address] Telecom: Name: Joni Quiñonez MD Position: [facility] Outreach Member Role: Lifetime Consulting Physician Address: [address] [facility] [address] Telecom: Name: Rylie Albert RN Position: [facility] RN Member Role: Primary Care Nurse Name: Morena MILLER, Mayco Taylor Position: [facility] Physician - Primary Care Member Role: PCP Address: [address] [place] [address]- Telecom: Care Team Related Persons Name: CARLEE LÓPEZ MD Name: JV YOU Insurance Providers Guarantor name: DEVAUGHN YOU Health Plan Information #: 1 Payer: MEDICARE PART B OUTPT Member Number: NA Policy Number: NA Group Number: NA Health Plan Information #: 2 Payer: BLUE MEDICARE SUPPL Member Number: NA Policy Number: NA Group Number: NA
--- NOTE | 2024-09-23 10:00 | P.CONAN_ITS ---
Documented by User: Beryl Mota NP 09/23/24 10:00 HPI - Anesthesia Eval Consult details Narrative: 73yo F for Right Cataract Extraction IOL Insertion PMFSH Past Medical History Medical History Cataracts, bilateral Nephrolithiasis Hx of urinary tract infection HTN (hypertension) Dyslipidemia Diabetic neuropathy Diabetes Family History Family history of problems with anesthesia: No Surgical History Surgical History Hx of left cataract extraction (09/12/24) Hx of colonoscopy Hx of lithotripsy History of total left knee replacement (TKR) History of Problems with Anesthesia: No Social History Social History Are you a primary care coordinator to a significant other at home: No Do you presently have visiting nurse or other home services: No Patient Tobacco Use Status: Former Tobacco user Use of substances other than those prescribed or required for medical reasons: No Have you been hit, kicked, punched, or otherwise hurt by someone within the past year? If so, by whom?: No Are you DNR?: No Advance Directives: No Advance Directives Information Provided: Yes Recently lost weight without trying: No Nutrition Risks: No Nutritional Risk Meds Allergies Allergy/AdvReac Type Severity Reaction Status Date / Time amlodipine Allergy perineal Verified 09/26/24 08:08 irritation empagliflozin Allergy Swelling Verified 09/26/24 08:08 [From Jardiance] Home Medications ?Medication ?Instructions ?Recorded ?Confirmed ?Last Taken ?Type [place] 3 09/07/24 09/07/24 Unknown History PreserVision AREDS 09/07/24 Unknown History cholecalciferol (vitamin D3) 50 50 mcg PO DAILY 09/07/24 09/12/24 Unknown History mcg (2,000 unit) capsule (Vitamin D3) cyanocobalamin (vitamin B-12) 3,000 mcg sublingual DAILY 09/07/24 09/12/24 Unknown History 1,000 mcg sublingual tablet insulin glargine 100 unit/mL (3 27 unit subcut DAILY 09/07/24 09/26/24 09/25/24 History mL) subcutaneous pen (Swapnaaglar KwikPen U-100 Insulin) valsartan 160 mg tablet 160 mg PO DAILY 09/07/24 09/26/24 09/25/24 History Exam Height,Weight and Vital Signs: Height 5 ft 8.11 in Weight 93.9 kg Assessment and Plan Assessment Anesthesia Assessment: Chart Reviewed Final Anesthetic Review Family History of Problems with Anesthesia: No History of Problems with Anesthesia: No Documented by User: Lynn Lee MD 09/26/24 09:17 PMF Past Medical History Medical History Cataracts, bilateral Nephrolithiasis Hx of urinary tract infection HTN (hypertension) Dyslipidemia Diabetic neuropathy Diabetes Family History Family history of problems with anesthesia: No Surgical History Surgical History Hx of left cataract extraction (09/12/24) Hx of colonoscopy Hx of lithotripsy History of total left knee replacement (TKR) History of Problems with Anesthesia: No Social History Social History Are you a primary care coordinator to a significant other at home: No Do you presently have visiting nurse or other home services: No Patient Tobacco Use Status: Former Tobacco user Use of substances other than those prescribed or required for medical reasons: No Have you been hit, kicked, punched, or otherwise hurt by someone within the past year? If so, by whom?: No Are you DNR?: No Advance Directives: No Advance Directives Information Provided: Yes Recently lost weight without trying: No Nutrition Risks: No Nutritional Risk Meds Allergies Allergy/AdvReac Type Severity Reaction Status Date / Time amlodipine Allergy perineal Verified 09/26/24 08:08 irritation empagliflozin Allergy Swelling Verified 09/26/24 08:08 [From Jardiance] Home Medications ?Medication ?Instructions ?Recorded ?Confirmed ?Last Taken ?Type [place] 3 09/07/24 09/07/24 Unknown History PreserVision AREDS 09/07/24 Unknown History cholecalciferol (vitamin D3) 50 50 mcg PO DAILY 09/07/24 09/12/24 Unknown History mcg (2,000 unit) capsule (Vitamin D3) cyanocobalamin (vitamin B-12) 3,000 mcg sublingual DAILY 09/07/24 09/12/24 Unknown History 1,000 mcg sublingual tablet insulin glargine 100 unit/mL (3 27 unit subcut DAILY 09/07/24 09/26/24 09/25/24 History mL) subcutaneous pen (Basaglar KwikPen U-100 Insulin) valsartan 160 mg tablet 160 mg PO DAILY 09/07/24 09/26/24 09/25/24 History Exam Height,Weight and Vital Signs: Height 5 ft 8.11 in Weight 93.9 kg Vital Signs Temp Pulse Resp BP Pulse Ox O2 Del Method 09/26/24 08:10 979 F H 73 14 167/97 H 98 Room Air Pertinent Lab Results Pertinent Lab Results: Lab Results 09/26/24 Range/Units 08:47 POC Glucose 178 H (60-115) mg/dL Airway Mallampati Class: II TM Dist: >3cm Neck ROM: Full Loose/Missing/Broken Teeth: No Heart: RRR Lungs: CTAB Assessment and Plan Assessment Anesthesia Assessment: Anesthesia Plan Discussed and Chart Reviewed Final Anesthetic Review Family History of Problems with Anesthesia: No History of Problems with Anesthesia: No NPO: Yes ASA Class: III Final Preanesthetic Review: No Changes in Pt Med Stat, Meds/Allgs Chart Reviewed, Consent Obtained/Reviewed and Anes Risks/Benef Reviewed Patient Risk: Intermediate Procedure Risk: Low Assessment/Block/Sedation in SS: Assess/Block/Sedation-SS Anesthetic Plan Anesthetic Plan: MAC: Disposition: Standard PACU
[2024-09-26 08:10] VITALS: BP 167/97; PULSE 73; RESP 14; TEMP 526.1; TEMP 979; O2SAT 98; BMI 31.5
[2024-09-26] MEDS: Tetracaine HCl/PF 0.5% Oph Sol 4 ML DROPS 1 DROP EYE-RIGHT (08:21)
[2024-09-26] MEDS: Cyclopentolate 1 % Ophth Sol 2 ML DRPBTL 1 DROP EYE-RIGHT ×3 (08:22→08:29)
[2024-09-26] MEDS: Tropicamide 1 % Ophth Sol 3 ML BTL 1 DROP EYE-RIGHT ×3 (08:23→08:30)
[2024-09-26] MEDS: Ketorolac Tromethamine 0.5% Op 5 ML DROPS 1 DROP EYE-RIGHT ×3 (08:24→08:31)
[2024-09-26] MEDS: Phenylephrine HCL 2.5% Oph SoL 2 ML BOTTLE 1 DROP EYE-RIGHT ×3 (08:25→08:32)
[2024-09-26] MEDS: Lactated Ringers 500 ML 50 ML IV (08:32)
[2024-09-26 08:51] LABS: Glucose, Whole Blood 178 mg/dL (60-115)
--- NOTE | 2024-09-26 08:58 | P.PCNO_ITS ---
Ophthalmology Procedure Procedure Date of Service: 09/26/24 Ophthalmology Viscoelastic: Healon Duet Dual Pack Pro Ophthalmology Lenses: IOL Acrysof MP - [id number] (23) Procedure Notes: PREOPERATIVE DIAGNOSIS: Decreased visual acuity right eye secondary to cataract POSTOPERATIVE DIAGNOSIS: Same PROCEDURE: Right cataract extraction with intraocular lens insertion SURGEON: Mickey Singh M.D. ANESTHESIA: Topical/MAC ESTIMATED BLOOD LOSS: None COMPLICATIONS: None After obtaining informed consent, the patient was brought to the operating room suite and placed in the supine position. After adequate sedation per anesthesia, topical drops of Tetracaine were given to the right eye. The eye was then prepped and draped in the usual sterile fashion. The operating room microscope was then positioned over the operative eye and a lid speculum placed. A paracentesis was created. Viscoelastic was then instilled into the anterior chamber. A three plane incision was then created temporally, utilizing a 2.85 mm keratome. Capsulotomy forceps were then utilized to create a circular tear capsulotomy. Hydrodissection and hydrodelineation were carried out until adequate mobilization of the nucleus occurred. Phacoemulsification was then utilized to remove the dense central nucl eus followed by removal of the cortical material utilizing the automated aspiration irrigation unit. Viscoelastic was instilled into the posterior capsular bag followed by placement of a posterior chamber intraocular lens without difficulty. The residual Viscoelastic was then removed utilizing the automated IA machine. The wound was checked and found to be watertight. The patient tolerated the procedure well and the lid speculum was removed. Intracameral injection of Vigamox 0.1 mL followed by a subtenon injection of Kenalog-40 0.2 mL were administered. The patient will be seen in the a.m.
--- NOTE | 2024-09-26 08:58 | MHC.SHP ---
Pre-Procedural Eval Section A - 24 Hr Update-Section A only Date of Service: 09/26/24 The patient is an INPATIENT: No Changes since office visit: No Cold of Flu in the past 2 weeks, No New Medical Problems, No Changes in Medication and No Patient answered all questions The patient has been examined within 24 hours of the surgical procedure. The History & Physical has been completed within 30 days and I have reviewed it.: Yes Section B - Complete if H&P > 30 days Chief Complaint: Age-related nuclear cataract, right eye Allergies: Allergies Allergy/AdvReac Type Severity Reaction Status Date / Time amlodipine Allergy perineal Verified 09/26/24 08:08 irritation empagliflozin Allergy Swelling Verified 09/26/24 08:08 [From Jardiance] Plan Diagnosis/Plan: Unchanged I have reviewed the history and physical and performed a pertinent physical examination on my patient. No changes have occurred unless specified. Time Spent With Patient Time: Total time managing care of this patient today ____ minutes.
[2024-09-26 09:24] VITALS: BP 178/94; PULSE 72; RESP 20; TEMP 36.2; O2SAT 100
== END 2024-09-26 09:27 | disposition home or self-care (01) ==
PROVIDERS: PCP Internal Medicine; Visit Provider Ophthalmology
PROC: (CPT 66985; principal; 2024-09-26 09:30)
DX: H25.11 Age-related nuclear cataract, right eye (principal); H54.7 Unspecified visual loss; I10 Essential (primary) hypertension; E11.21 Type 2 diabetes mellitus with diabetic nephropathy; Z79.4 Long term (current) use of insulin; E78.00 Pure hypercholesterolemia, unspecified; Z79.899 Other long term (current) drug therapy; Z88.8 Allergy status to other drugs, medicaments and biological substances; Z87.442 Personal history of urinary calculi; Z87.891 Personal history of nicotine dependence
CPT/HCPCS: 66984; 82947; J2250; J3010; J3301; V2630